=== PATIENT | female | born 1960 | race Caucasian/White ===

== ENCOUNTER → 2019-01-22 07:14 | Outpatient (CLI) | payer OTHER, SELFPAY ==
[2016-01-13 07:00] VITALS: BMI 33.5
[2019-01-22 08:00] LABS: Absolute Lymphocyte Count 3.04 X10^3/ul (0.83-4.51); Basophil# 0.04 X10^3/uL; Basophil% 0.5 % (0-1); Eosinophil# 0.21 X10^3/uL; Eosinophils% 2.6 % (0-5); Hematocrit 41.7 % (37-47); Hemoglobin 13.9 g/dl (12.0-15.0); Lymphocyte # 3.04 X10^3/ul (4.0); Lymphocyte % 38.1 % (19-41); Mean Corp Hgb Conc 33.3 g/gl (32-36); Mean Corpuscular Hgb 29.6 pg (27.0-32.0); Mean Corpuscular Volume 88.9 fL (81-99); Mean Platelet Vol. 9.4 fl (6.2-12.0); Monocyte# 0.66 X10^3/uL; Monocyte% 8.3 % (0-10); Neutrophil % 50.2 % (47-70); Platelet Count 351 K/mm3 (150-450); RBC Distribution Width CV 14.2 % (11.6-14.6); RBC Distribution Width SD 46.1 fl (35.1-43.9); Red Blood Count 4.69 M/mm3 (4.2-5.4)
[2019-01-22 08:03] LABS: Hemoglobin A1c 6.4 % (4.2-6.3)
[2019-01-22 08:04] LABS: POSITIVE COUNT NO; POSITIVE DIFFERENTIAL NO; POSITIVE MORPHOLOGY NO
[2019-01-22 08:19] LABS: ALB/GLOB Ratio 1.3 RATIO (0.9-2.4); AST(SGOT) 15 U/L (15-37); Alanine Aminotransfer ALT/SGPT 30 U/L (13-56); Albumin, Serum 3.9 g/dL (3.2-5.0); Alkaline Phosphatase 70 U/L (45-117); Anion Gap 7 (5-15); BUN 15 mg/dL (7-18); BUN/Creat Ratio 18.7 RATIO (10-20); Calcium,Total 9.1 mg/dL (8.5-10.1); Chloride 106 mmol/L (98-107); Cholesterol 145 mg/dL (200); EST Glomerular Filtration Rate 79 mL/min (>60); Est Glom Filt Rate - Afr Amer 95 mL/min (>60); Glucose 119 mg/dL (74-106); High Density Lipoprotein 50 mg/dL; Protein, Total 6.9 g/dL (6.4-8.2); Sodium Level 137 mmol/L (136-145); T4 Free Direct 1.03 ng/dL (0.76-1.46); Thyroid Stim Hormone (TSH) 4.81 uIU/mL (0.358-3.74); Triglycerides 141 mg/dL; Very Low Density Lipoprotein 28 mg/dL (5-40)
== END ==
PROVIDERS: Family Provider Family Medicine; PCP Family Medicine; Referring Provider Family Medicine; Visit Provider Family Medicine
DX: Z00.00 Encounter for general adult medical examination without abnormal findings (principal); E01.0 Iodine-deficiency related diffuse (endemic) goiter; R73.03 Prediabetes
CPT/HCPCS: 36415; 80053; 80061; 83036; 84439; 84443; 85025

== ENCOUNTER → 2019-01-30 10:34 | Outpatient (CLI) | payer OTHER, SELFPAY ==
[2016-01-13 07:00] VITALS: BMI 33.5
--- NOTE | 2019-01-30 10:37 | BI_ITS ---
MAMMOGRAPHY - BILATERAL SCREENING REASON FOR EXAM: Female, 58 years old. Routine annual screening examination. PERTINENT HISTORY: Non-contributory. TECHNIQUE: Digital bilateral breast marcus (3D mammographic acquisition) in the CC and MLO projections. 2-D mediolateral oblique (MLO) and craniocaudad (CC) views of both breasts were obtained. CAD: Full Field Digital Mammography with Computer Added Detection was performed. COMPARISON: Comparison is made with prior examination dated December 25, 2016 and March 09, 2015. FINDINGS: Breast Composition: The breasts are almost entirely fatty. There are no dominant masses or suspicious calcifications. Stable small bilateral axillary lymph nodes. No other significant abnormalities are identified. There has been no significant change since the prior study. BI/SCREEN MAMM (CAD) W/MARCUS BILAT IMPRESSION: Stable bilateral screening mammogram. Yearly follow-up mammogram recommended. (A) ASSESSMENT CATEGORY: BIRADS Category 2: Benign. A letter regarding these results will be sent to the patient by the facility within 30 days. Approximately 10% of breast cancers are not detected by mammography. A normal mammogram should not delay biopsy of a clinically suspicious abnormality. [id number] Electronically Signed: Donovan Lange, at 12:33 EDT , Service support ,
== END ==
PROVIDERS: Family Provider Family Medicine; PCP Family Medicine; Referring Provider Family Medicine; Visit Provider Family Medicine
DX: Z12.31 Encounter for screening mammogram for malignant neoplasm of breast (principal)
CPT/HCPCS: 77063; 77067

== ENCOUNTER → 2020-11-10 09:39 | Outpatient (CLI) | payer OTHER, SELFPAY ==
[2016-01-13 07:00] VITALS: BMI 33.5
--- NOTE | 2020-11-10 09:43 | RAD_ITS ---
HISTORY: DYSPNEA EXAM: XR Chest 2 Views: COMPARISON: November 18, 2013 FINDINGS: # of images incl. paperwork: 2 Lungs are clear. Heart is not enlarged. No acute osseous pathology perceived. Pulmonary vascularity is distinct. No effusions. RAD/Chest PA and Lateral IMPRESSION: Normal. at 2216 Reported and signed by: Miguel Calhoun MD Electronically Signed: Miguel Calhoun MD at 22:15 EDT Tel , Service support ,
[2020-11-10 12:27] LABS: Erythrocyte Sedimentation Rate 7 mm/hr (0-30)
[2020-11-10 12:29] LABS: Absolute Lymphocyte Count 2.21 X10^3/uL (0.83-4.51); Basophil# 0.05 X10^3/uL; Basophil% 0.6 % (0-1); Eosinophil# 0.16 X10^3/uL; Hematocrit 44.6 % (37-47); Hemoglobin 14.3 g/dL (12.0-15.0); Lymphocyte # 2.21 X10^3/ul (0.83-4.51); Lymphocyte % 27.9 % (19-41); Mean Corp Hgb Conc 32.1 g/dL (32-36); Mean Corpuscular Hgb 29.1 pg (27.0-32.0); Mean Corpuscular Volume 90.8 fL (81-99); Mean Platelet Vol. 9.5 fl (6.2-12.0); Monocyte# 0.47 X10^3/uL; Monocyte% 5.9 % (0-10); NRBC Flagged by Analyzer 0 % (0-5); Neutrophil % 63.2 % (47-70); Platelet Count 410 K/mm3 (150-450); RBC Distribution Width CV 14.6 % (11.6-14.6); RBC Distribution Width SD 48.6 fl (35.1-43.9); Red Blood Count 4.91 M/mm3 (4.2-5.4); White Blood Count 7.9 K/mm3 (4.4-11.0)
[2020-11-10 12:35] LABS: Vitamin B12 1351 pg/mL (211-911)
[2020-11-10 12:52] LABS: ALB/GLOB Ratio 1.3 RATIO (0.9-2.4); AST(SGOT) 14 U/L (15-37); Alanine Aminotransfer ALT/SGPT 46 U/L (13-56); Albumin, Serum 4.2 g/dL (3.2-5.0); Alkaline Phosphatase 83 U/L (45-117); Anion Gap 5 (5-15); BUN 14 mg/dL (7-18); BUN/Creat Ratio 18.2 RATIO (10-20); CRP 4.65 mg/L (0.0-3.0); Calcium,Total 9.4 mg/dL (8.5-10.1); Chloride 105 mmol/L (98-107); Cholesterol 133 mg/dL (200); Creatinine, Serum 0.77 mg/dL (0.55-1.02); EST Glomerular Filtration Rate 82 mL/min (>60); Est Glom Filt Rate - Afr Amer 99 mL/min (>60); Globulin 3.3 g/dL (2.2-4.2); Glucose 123 mg/dL (74-106); High Density Lipoprotein 45 mg/dL; Protein, Total 7.5 g/dL (6.4-8.2); Rheumatoid Factor < 10.0 IU/mL (<15); Sodium Level 137 mmol/L (136-145); Thyroid Stim Hormone (TSH) 2.79 uIU/mL (0.358-3.74); Triglycerides 143 mg/dL; Very Low Density Lipoprotein 29 mg/dL (5-40)
[2020-11-10 13:01] LABS: Hemoglobin A1c 6.6 % (3.8-5.6)
[2020-11-11 18:37] LABS: ANTINUCLEAR ANTIBODIES DIRECT Negative (Negative)
[2020-11-12 09:14] LABS: CCP IgG Antibodies 4 units (0-19)
== END ==
PROVIDERS: PCP Family Medicine; Referring Provider Family Medicine; Visit Provider Family Medicine
DX: R06.00 Dyspnea, unspecified (principal); M25.50 Pain in unspecified joint; G62.9 Polyneuropathy, unspecified; R73.03 Prediabetes; I25.10 Atherosclerotic heart disease of native coronary artery without angina pectoris
CPT/HCPCS: 36415; 71046; 80053; 80061; 82607; 83036; 84443; 85025; 85652; 86038; 86140; 86200; 86225; 86235; 86431

== ENCOUNTER → 2020-11-22 08:11 | Outpatient (CLI) | payer OTHER, SELFPAY ==
[2016-01-13 07:00] VITALS: BMI 33.5
--- NOTE | 2020-11-22 13:16 | PFTCOMP ---
INTRODUCTION: The patient is a 60-year-old female that presents for pulmonary function studies secondary to a diagnosis of dyspnea. Respiratory therapy reports good patient effort. Bronchodilators were used during testing. INTERPRETATION: Forced expiration spirometry demonstrates the presence of a moderate large airways obstructive ventilatory defect. There was no significant response to aerosolized bronchodilators. Spirograms are of good quality but plateau slowly, indicating slow emptying of the lungs. Body plethysmography was performed and reveals lung volumes to be within normal limits. Diffusing capacity by single breath CO is reduced at 58% of predicted. IMPRESSION: Irreversible moderate large airways obstructive ventilatory defect with symmetric reduction in diffusing capacity.
== END ==
PROVIDERS: PCP Family Medicine; Referring Provider Family Medicine; Visit Provider Family Medicine
DX: R06.00 Dyspnea, unspecified (principal)
CPT/HCPCS: 94060; 94726; 94729

== ENCOUNTER → 2021-04-20 06:18 | Outpatient (CLI) | payer OTHER, SELFPAY ==
[2016-01-13 07:00] VITALS: BMI 33.5
--- NOTE | 2021-04-20 17:36 | STRESSREP_ITS ---
Stress Test Report Date: 04-20-2021 Procedure: Exercise tolerance test/imaging study Indications: Shortness of breath/dyspnea on exertion Consent: Per the patient Procedure: The patient exercised on a Stan protocol for 6 minutes completing Stage II achieving a peak heart rate of 111 bpm (68% predicted maximal heart rate) with a peak blood pressure 152/80 mmHg and a peak MET capacity of 7 METs. The baseline ECG demonstrated sinus rhythm; nonspecific T wave abnormality. The peak exercise ECG demonstrated no obvious ECG changes. There were no cardiac dysrhythmias pretest, during exercise, or recovery. The functional capacity was considered average. There was no complaint of chest discomfort during exercise or recovery. The examination was discontinued secondary to dyspnea. Impression: 1. Technically adequate (percent predicted maximal heart rate greater than 85%) exercise tolerance test 2. Peak exercise ECG with no obvious ECG changes 3. There were no cardiac dysrhythmias pretest, during exercise, or recovery 4. Nuclear images pending Myocardial perfusion imaging study: Technique: The patient was injected with 11.3 mCi of technetium 99m Cardiolite and subsequently rest SPECT Cardiolite nuclear imaging was obtained in the horizontal long, vertical long, and short axis views. The patient exercised on a Stan protocol for 6 minutes completing Stage II achieving a peak heart rate of 111 bpm (68% predicted maximal heart rate) with a peak blood pressure 152/80 mmHg and a peak MET capacity of 7 METs. The patient was injected with 34.2 mCi of technetium 99m Cardiolite and subsequently stress SPECT Cardiolite nuclear imaging was obtained in the horizontal long, vertical long, and short axis views. A gated Cardiolite study at peak stress was obtained. Interpretation: Rest and stress SPECT Cardiolite nuclear imaging status post realignment, normalization, and attenuation correction, demonstrates the appearance of relat peter uniform tracer uptake and myocardial perfusion appearing within normal limits. There is end systolic thickening and brightening. The gated Cardiolite study demonstrates myocardial thickening and inward wall motion. The reported LVEF is 73%. Impression: 1. Rest and stress SPECT Cardiolite nuclear imaging demonstrate relative uniform tracer uptake and myocardial perfusion appearing within normal limits. 2. The gated Cardiolite study reports an LVEF of 73%. This note was generated with Up[employer] software. It may contain incorrect words, spelling, and punctuation that were not noted in checking the note before signing.
== END ==
PROVIDERS: PCP Internal Medicine; Referring Provider Internal Medicine; Visit Provider Internal Medicine
DX: R06.02 Shortness of breath (principal)
CPT/HCPCS: 78452; 93017; A9500; A4216

== ENCOUNTER → 2021-04-26 07:02 | Outpatient (CLI) | payer OTHER, SELFPAY ==
[2016-01-13 07:00] VITALS: BMI 33.5
--- NOTE | 2021-04-26 07:05 | BI_ITS ---
MAMMOGRAPHY - BILATERAL SCREENING 3-D TOMOSYNTHESIS REASON FOR EXAM: Female, 60 years old. SCREENING PERTINENT HISTORY: No significant family history. TECHNIQUE: 2-D mammograms and 3-D Tomosynthesis of the breast (s) were performed. CAD was performed. COMPARISON: 01/30/2019 FINDINGS: The breast composition is composed of scattered fibroglandular density. Scattered benign calcifications are seen. No dense spiculated masses or suspicious microcalcifications are identified. No architectural distortion is identified. There is no skin thickening or retraction. There has been no significant change since the prior study. BI/SCRN MAMM (CAD)W/MARCUS BILAT IMPRESSION: No mammographic signs of malignancy. Routine yearly mammograms recommended. ASSESSMENT CATEGORY: BIRADS Category 1: Negative. A letter regarding these results will be sent to the patient by the facility within 30 days. FOLLOW UP RECOMMENDATION: Yearly follow up mammogram recommended. (A) Approximately 10% of breast cancers are not detected by mammography. A normal mammogram should not delay biopsy of a clinically suspicious abnormality. Electronically Signed: Maciej Restrepo MD at 8:15 EDT Tel , Service support ,
== END ==
PROVIDERS: PCP Internal Medicine; Referring Provider Internal Medicine; Visit Provider Internal Medicine
DX: Z12.31 Encounter for screening mammogram for malignant neoplasm of breast (principal)
CPT/HCPCS: 77063; 77067

== ENCOUNTER → 2021-04-28 06:58 | Outpatient (CLI) | payer OTHER, SELFPAY ==
[2016-01-13 07:00] VITALS: BMI 33.5
--- NOTE | 2021-04-28 07:03 | CT_ITS ---
INDICATION: SMOKER EXAMINATION: CT CHEST WITHOUT CONTRAST - CT Chest W/O Contrast Injection TECHNIQUE: Helically acquired images were obtained of the chest. A radiation dose optimization technique was used for this scan. IV Contrast dosage and agent: None. COMPARISON: 11/10/2020. FINDINGS: LUNGS, PLEURA AND LARGE AIRWAYS: Mild bronchial wall thickening with subtle prominence of the interstitial lung markings, no evidence of focal lung infiltrate or consolidation, no evidence of parenchymal lung nodules or masses. No evidence of pneumothorax or pleural effusion. THYROID: No thyroid lesions. HEART AND PERICARDIUM: Heart size is normal. No pericardial effusion. Atherosclerotic calcifications of the coronary vessels are seen. VESSELS: Thoracic aorta is not dilated. Scattered atherosclerotic calcifications visualized in the aortic arch. MEDIASTINUM AND GAMA: A well-circumscribed 1.7 cm low-attenuation lesion is visualized in the anterior right pericardium, could represent a pericardial cyst. Scattered subcentimeter mediastinal lymph nodes are seen. No mediastinal or hilar adenopathy. Esophagus is unremarkable. No hiatal hernia. UPPER ABDOMEN: No acute pathology. A 0.3 cm nonobstructive stone is visualized in the neck of the gallbladder. BONES: Degenerative bone changes, no suspicious lytic or blastic abnormality. Prominent bilateral axillary lymph nodes visualized largest on the right axilla seen on axial series 2 image 17 measuring 2.[address]/Chest without Contrast IMPRESSION: No evidence of parenchymal lung masses or nodules. 1.7 cm low-attenuation lesion visualized in the anterior right pericardium could represent either a pericardial cyst or lymph node. Bilateral axillary lymphadenopathy seen. Electronically Signed: Mykel Aguilera MD at 8:20 EDT Tel , Service support ,
== END ==
PROVIDERS: PCP Internal Medicine; Referring Provider Internal Medicine; Visit Provider Internal Medicine
DX: F17.200 Nicotine dependence, unspecified, uncomplicated (principal)
CPT/HCPCS: 71250

== ENCOUNTER → 2021-06-24 07:02 | Outpatient (CLI) | payer SELFPAY ==
[2016-01-13 07:00] VITALS: BMI 33.5
[2021-06-24 07:34] LABS: Platelet Count 393 K/mm3 (150-450)
[2021-06-24 07:54] LABS: Hemoglobin A1c 5.7 % (3.8-5.6)
[2021-06-24 08:22] LABS: AST(SGOT) 11 U/L (15-37); Alanine Aminotransfer ALT/SGPT 25 U/L (13-56); Alkaline Phosphatase 68 U/L (45-117); Bilirubin, Direct 0.12 mg/dL (0.00-0.30); Cholesterol 113 mg/dL (200); Globulin 3.2 g/dL (2.2-4.2); High Density Lipoprotein 44 mg/dL; Protein, Total 7.2 g/dL (6.4-8.2); Triglycerides 91 mg/dL; Very Low Density Lipoprotein 18 mg/dL (5-40)
== END ==
PROVIDERS: PCP Internal Medicine; Referring Provider Internal Medicine; Visit Provider Internal Medicine
DX: D69.6 Thrombocytopenia, unspecified (principal); E11.9 Type 2 diabetes mellitus without complications; E78.5 Hyperlipidemia, unspecified
CPT/HCPCS: 36415; 80061; 80076; 83036; 85049

== ENCOUNTER 2021-09-13 16:16 | Outpatient (CLI) | payer OTHER, SELFPAY ==
[2016-01-13 07:00] VITALS: BMI 33.5
--- NOTE | 2021-09-13 16:28 | RAD_ITS ---
STUDY: X-RAY - PELVIS AND LEFT HIP REASON FOR EXAM: Female, 61 years old. LEFT HIP PAIN S/P FALL TODAY UNABLE TO BEAR WEIGHT TECHNIQUE: 3 views of the pelvis and hip. COMPARISON: Pelvic x-ray dated February 09, 2017 FINDINGS: There is a non-specific bowel gas pattern. Normal visualized soft tissue structures. No visualized acute fractures of the hips or pelvis. Lower lumbar spine hardware and chronic postoperative changes noted. Bilateral adnexal clips are also present. Normal bilateral iliac wings, sacroiliac joints and visualized sacrum. Normal bilateral superior and inferior pubic rami. Normal pubic symphysis. Normal bilateral ischial tuberosities. Normal visualized femoral head. Normal acetabulum. Normal hip joint. RAD/HIP, UNI W/ Pelvis 2-3 Views IMPRESSION: No acute process Electronically Signed: Ricky Trevizo MD at 17:45 EST ,
== END 2021-09-13 23:59 | disposition home or self-care (01) ==
PROVIDERS: PCP Internal Medicine; Referring Provider Internal Medicine; Visit Provider Internal Medicine
DX: M25.552 Pain in left hip (principal)
CPT/HCPCS: 73502

== ENCOUNTER 2021-09-14 13:25 | Emergency (ER) | payer OTHER, SELFPAY ==
[2016-01-13 07:00] VITALS: BMI 33.5
[2021-09-14 13:26] VITALS: BP 100/51; PULSE 66; RESP 15; TEMP 35.8; O2SAT 98; BMI 32.5
--- NOTE | 2021-09-14 13:45 | MRI_ITS ---
EXAM: MR LEFT LOWER EXTREMITY WITHOUT INTRAVENOUS CONTRAST, HIP CLINICAL INDICATION: trauma left hip/pelvis TECHNIQUE: Multiplanar and multisequence MR images of the left hip without intravenous contrast. This report was created using [employer] report generation technology. COMPARISON: xr Sep 13 2021 4:38pm FINDINGS: TENDONS: FLEXORS: Unremarkable. Intact. EXTENSORS/HAMSTRING: Unremarkable. Intact. ABDUCTORS: Unremarkable. Intact. ADDUCTORS: Unremarkable. Intact. ROTATORS: Unremarkable. Intact. MUSCLES: Unremarkable. Normal bulk and signal. FLUID: Unremarkable. No joint effusion. No trochanteric bursitis. LABRUM: Unremarkable. No evidence of a tear on this non-arthrogram exam. CARTILAGE: Unremarkable. Articular cartilage intact. BONES/JOINTS: Spinal fusion david causes artifact over the SI joints. No femoral neck fracture. No avascular necrosis of the femoral head. No sacral insufficiency fracture. No suspicious bone marrow signal alteration. OTHER SOFT TISSUES: Unremarkable. REPRODUCTIVE: Right Bartholin Cyst noted. MRI/Lower Ext Joint Only (Routine) IMPRESSION: Right Bartholin Cyst noted. Electronically Signed: Benson Rae MD at 15:53 EST Reading Location ID and State: [facility] / [place] , Service support ,
[2021-09-14] MEDS: Ondansetron 4 MG/2 ML Vial IV (14:02)
[2021-09-14] MEDS: Morphine 4 MG/ML Syringe IV (14:02)
--- NOTE | 2021-09-14 16:33 | EDS_ITS ---
HPI History of Present Illness Chief Complaint: Lower Extremity Injury Onset/Context/Timing Onset: Yesterday Location: L hip Current Severity: Severe Associated Symptoms Associated Symptoms: None Narrative Narrative: Patient fell yesterday and landed on her left hip. She is having a lot of pain despite taking narcotic medications and muscle relaxers. Her PCP evaluated her today and was concerned for hip fracture. She was discussed with Dr. Stark from orthopedics and the patient was referred to the ED for an MRI. Prior similar symptoms: No Recent Illness/Hospitalization: No PFSH PFSH Medical History Anxiety COPD (chronic obstructive pulmonary disease) Diabetes HTN (hypertension) Osteoarthritis Sleep apnea Home Medications lorazepam 0.5 mg PO DAILY PRN PRN 11/17/13 [History Last Taken Unknown] ecngxxok-xgs-UJ-lycopen-lutein [Centrum Silver Tablet] 1 ea PO DAILY 11/17/13 [History Last Taken Unknown] vvlvd-9o-qcq-epa-fish oil-D3 1 ea PO DAILY 11/17/13 [History Last Taken Unknown] amlodipine 5 mg tablet tablet PO 05/11/21 [History Last Taken Unknown] atorvastatin 40 mg tablet tablet PO 05/11/21 [History Last Taken Unknown] citalopram 20 mg tablet 40 mg PO DAILY tab 05/11/21 [History Last Taken Unknown] metformin 500 mg tablet tablet PO 05/11/21 [History Last Taken Unknown] metoprolol succinate 100 mg tablet,extended release 24 hr 100 mg PO DAILY tab 05/11/21 [History Last Taken Unknown] Allergy/AdvReac Type Severity Reaction Status Date / Time ciprofloxacin HCl Allergy Severe skin Verified 05/11/21 08:20 [From Cipro] cracking and peeling Family History (Updated 05/11/21 @ 08:19 by Eun Chase) Sister Diabetes Father Alzheimer disease Mother Emphysema lung Surgical History History of cardiac catheterization History of colonoscopy (~2017) History of spinal fusion History of tonsillectomy History of total abdominal hysterectomy History of tubal ligation Hx of LASIK Social History Smoking Status: Light Smoker (<10/day) ROS ROS ED Constitutional Constitutional ED: Denies fever(s) Eyes Eyes: Denies change in vision ENT ENT ED: Denies ear pain Cardiovascular Cardiovascular: Denies chest pain Respiratory/Chest Respiratory/Chest: Denies dyspnea Gastrointestinal Gastrointestinal: Denies abdominal pain Genitourinary Genitourinary ED: Denies dysuria Musculoskeletal Musculoskeletal: Reports arthralgias and myalgias Integumentary Denies rash Neurologic Neurologic: Denies headache(s) Psychiatric Psychiatric: Denies depression Endocrine Endocrinology: Denies polyuria Allergic/Immunologic Allergic/Immunologic ED: Denies urticaria EXAM Physical Exam Const Vital Signs: 09/14/21 13:26 Temperature 96.4 F L Temperature Source Temporal Pulse Rate 66 Respiratory Rate 15 Blood Pressure 100/51 L Blood Pressure Mean 67 Pulse Ox 98 Oxygen Delivery Method Room Air Positive well nourished and well developed General Appearance ED: well developed HEENT Negative for trauma Eyes EOMs intact bilaterally Neck supple Resp normal respiratory effort Cardio regular rate Extremity Extremity Narrative: Patient has no leg shortening or abnormal rotation. She has tenderness to palpation over the greater trochanter. No abnormal movement. Neuro oriented x3 Sensorium / Orientation: alert Motor Exam: strength 5/5 throughout Psych mental status grossly normal Skin no rashes or lesions noted MDM MDM MDM Narrative Medical decision making narrative: I have low clinical suspicion for fracture, but the patient is having severe pain. MRI was done at the recommendations of orthopedics. This showed no evidence of fracture or dislocation. Patient will continue using her walker. Pain medication. Follow-up with orthopedics. Return for any new or worsening issues. Impression #1 left hip pain Radiography Diagnostic Testing: Clinical Impression(s) from Imaging Studies Lower Extremity MRI 09/14/21 13:45 IMPRESSION: Right Bartholin Cyst noted. Electronically Signed: Benson Rae MD at 15:53 EST Reading Location ID and State: [facility] / [place] , Service support , Discharge Plan Triage Chief Complaint: Lower Extremity Injury ED Provider: Leonidas Baltazar Dx/Rx/DC Orders Prescriptions: No Action metformin 500 mg tablet PO RF: 0 atorvastatin 40 mg tablet PO RF: 0 metoprolol succinate 100 mg tablet extended release 24 hr 100 mg PO DAILY RF: 0 amlodipine 5 mg tablet PO RF: 0 citalopram 20 mg tablet 40 mg PO DAILY RF: 0 lorazepam 0.5 MG tablet 0.5 mg PO DAILY PRN PRN (Reason: Anxiety) RF: 0 pbhueiba-ghz-YJ-lycopen-lutein [Centrum Silver] 1 EACH tablet 1 ea PO DAILY RF: 0 ycjal-6e-apd-epa-fish oil-D3 1 EACH capsule 1 ea PO DAILY RF: 0 Primary Care Provider: Stephie Walsh
== END 2021-09-14 17:01 | disposition home or self-care (01) ==
LOC: ED 13:52
PROVIDERS: Emergency Provider Emergency Medicine; PCP Internal Medicine; Visit Provider Emergency Medicine
DX: M25.552 Pain in left hip (principal); F17.200 Nicotine dependence, unspecified, uncomplicated; G47.30 Sleep apnea, unspecified
CPT/HCPCS: 73721; 96374; 96375; 99283; A4216; J2405

== ENCOUNTER 2021-10-28 07:00 | Outpatient (RCR) | payer OTHER, SELFPAY ==
[2016-01-13 07:00] VITALS: BMI 33.5
--- NOTE | 2021-10-03 08:49 | HP.PTEVAL ---
Patient's Visit Information FELIPE ARAUZ is a 61 year old F referred to Physical Therapy by Dr. Stephie Walsh MD with a diagnosis of Left Hip and Lumbar Pain. Date of Evaluation: 10/03/21 Physical Therapist: Carol Pulliam DPT - Visit Plan Frequency: 2x /Week Duration: 4 Weeks Plan: Focus on LE and Core strength/stabilization- E-stim as modality- no US - Subjective Patient reports 3 weeks ago she fell down the stairs- she crawled back up the stairs- got herself righted- then went to the PCP who took an x-ray of the left hip. Went to ER to get MRI approved- no fractures note. She hit her left hip/knee/ankle and ribs. She went head first. She is having pain in the right side in the rib area- feels its compensatory for her left hip. The pain is there all the time. Agg: twisting, bending, uneven surfaces. Worst: 3/10 Best: 10 Eases: muscle relaxers, medication. She can sit longer than she can stand- laying down normally feels pretty good but she is a restless sleeper so rolling over wakes her up and is painful. The pain is located in the joint. Describes it as dull and achy all the time but sharp when it grabs her. No radiating pain down the leg but does reports pain across the lumbar spine to the right side. Does have some pain that radiates across the front of the pelvis. 25 years she had a lumbar fusion- so she does have some left foot numbness/tingling. No residual buckling or weakness. She does not fall regularly. She is back to normal activities just with pain- still not lifting the laundry baskets- lots of steps. 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 She can get up and move around as needed. PMHx/Meds: see ED note- up to date. - Objective Posture: FH, RS- can correct but does not main. Gait: no deviation noted- good arm swing and trunk rotation- good guillaume. Balance: 15 seconds bilateral- no hip drop noted. HR/TR: able without UE support- reports discomfort with TR on the left. Stairs: asc/desc 8 recip with 1 HR- report discomfort with eccentric. ROM: Lumbar: flexion: hands to toes. Extension: discomfort noted but WFL, SB to the right with discomfort, Rotation: slight pain bilateral, Hip: WFL discomfort with IR. Strength: Core: fair, Hip: 4/5 throughout, Knee: 5/5, Ankle: 5/5. Flex: HS: no restriction, Gastroc: mild restriction. Special Test: LLD: negative, Pelvic Alignment: WFL - Special Tests L/S Slump test left side: Positive L/S Slump test right side: Positive L/S Left Straight Leg Raise: Negative L/S Right Straight Leg Raise: Negative L Hip Scour: Negative L Hip TREY - Intraarticular Pathology: Positive L Hip FADDIR - Labrum: Positive - Balance/Special Test Scores Lower Extremity Functional Score: 34 - Goals Goal 1:: Patient will be I with HEP and progression Goal Time Frame: 4-6 Weeks Goal 2:: Patient will maintain proper posture t/o tx session to demo increased core s/s Goal Time Frame: 4-6 Weeks Goal 3:: Patient will subjectively report 80% better Goal Time Frame: 4-6 Weeks Goal 4:: Patient will demo full AROM of the lumbar spine with no reports of pain Goal Time Frame: 4-6 Weeks - Rehabilitation Potential Physical Therapy Diagnosis: Patient presents with hypomobility s/p fall- she has decreased pain free ROM, LE and core strength/stabilization and muscular endurance leading to poor posture and increased pain with ADL's. Rehabilitation Potential: Good - Anticipated Interventions Patient/Client Instruction: Educate patient on: Benefits of Fitness Program Therapeutic Exercise to Include: Strength training, Endurance training, Balance training, Coordination, Body mechanics, Postural training, Flexibilty training, Gait and locomotor training, Neuromotor development, Dynamic Lumbar Stabilization, Scapular Strength/Stabilization For the Purpose of:: To improve muscle performance and motor function TENS: Yes Cryotherapy (ice pack, ice massage): Yes Thermo therapy (hot pack): Yes Ultrasound (thermal/non thermal): No Thank you for the opportunity to evaluate your patient. For Medicare and Medicare HMO plans, please review the plan of care and approve it. It will need to be FAXED BACK to us at [phone] for Medicare purposes. For Medicare only, by signing this I certify the plan of care. Please let me know if there are questions or concerns regarding this plan of care. Physician Signature: Date:
--- NOTE | 2021-10-28 07:24 | HP.PTDCSUM_ITS ---
It has been my pleasure to treat FELIPE ARAUZ referred by Dr. Stephie Walsh MD, with the diagnosis of Left Hip and Lumbar Pain for a total of 9 visit(s). Discharge Date: Please see the following information for a summary of their discharge status. Subjective: PATIENT REPORTS THE SYMPTOMS SHE CAME HERE FOR ARE GONE. PLANS TO CONTINUE WITH HER HEP. Left Hip Pain Intensity (Out of 10): 0 % Improvement: 100 Objective/Function: PATIENT WAS SEEN TODAY FOR RE-ASSESSMENT OF PROGRESS TOWARD THE SET PT GOALS AND THE NEED FOR FURTHER PHYSICAL THERAPY VS READINESS FOR DISCHARGE. UPON EXAM TODAY: PATIENT IS PAINFREE WITH LUMBAR ROM TESTING ALL PLANES TODAY, IS INDEP WITH A HEP AND ALL GOALS HAVE BEEN MET. SHE IS APPROPRIATE FOR AND AGREEABLE TO DISCHARGE TODAY. Goal 1:: Patient will be I with HEP and progression Goal Progress: Goal Met Goal 2:: Patient will maintain proper posture t/o tx session to demo increased core s/s Goal Progress: Goal Met Goal 3:: Patient will subjectively report 80% better Goal Progress: Goal Met Goal 4:: Patient will demo full AROM of the lumbar spine with no reports of pain Goal Progress: Goal Met Plan: D/C TO HEP. PATIENT AGREEABLE. If there are questions or concerns regarding this patient's physical therapy, joseph saher feel free to call me at [phone]. Thank you for the referral of this patient. Sincerely, Sudha Menjivar, PT, Cert MDT Balance/Gait/Functional tests - Balance/Special Test Scores Lower Extremity Functional Score: 75
== END 2021-10-28 15:18 | disposition home or self-care (01) ==
LOC: PT 07:00
PROVIDERS: PCP Internal Medicine; Referring Provider Internal Medicine; Visit Provider Internal Medicine
DX: M54.9 Dorsalgia, unspecified; M25.559 Pain in unspecified hip
CPT/HCPCS: 97014; 97035; 97110; 97162; 97164; G0283

== ENCOUNTER → 2022-05-24 | Outpatient (CLI) | payer OTHER, SELFPAY ==
[2016-01-13 07:00] VITALS: BMI 33.5
--- NOTE | 2022-05-24 15:36 | NEURO ---
NCS and/or EMG Patient Report Ordering Doctor: Stephie Walsh DATE OF SERVICE: 05/24/22 Ashley presents for electrodiagnostic testing of the right upper limb. She reports numbness and tingling in the right fifth digit. Electrodiagnostic findings: Right median motor nerve demonstrates normal distal latency, amplitude and conduction velocity. Ulnar motor response demonstrates normal distal latency and amplitude with a greater than 15% drop in conduction across the elbow. Normal median and ulnar F waves. Sensory responses are within normal limits. On needle EMG, all muscles tested in the right upper limb, as well as a cervical paraspinals, showed no evidence of denervation with normal motor unit action potentials. Electrodiagnostic impression: This is an abnormal study in the right upper limb. 1. Electrodiagnostic findings suggestive of right-sided ulnar neuropathy, consistent with a mild right cubital tunnel syndrome. 2. No electrodiagnostic evidence is noted for median neuropathy, i.e. carpal tunnel syndrome 3. No electrodiagnostic evidence is noted for cervical radiculopathy.
== END | disposition home or self-care (01) ==
LOC: PSN 08:21
PROVIDERS: PCP Internal Medicine; Referring Provider Internal Medicine; Visit Provider Internal Medicine
DX: R20.2 Paresthesia of skin (principal)
CPT/HCPCS: 95886; 95910

== ENCOUNTER → 2023-02-23 | Outpatient (CLI) | payer OTHER, SELFPAY ==
[2016-01-13 07:00] VITALS: BMI 33.5
== END | disposition home or self-care (01) ==
PROVIDERS: PCP Internal Medicine; Referring Provider Internal Medicine; Visit Provider Internal Medicine
DX: G47.33 Obstructive sleep apnea (adult) (pediatric) (principal)
CPT/HCPCS: 95810

== ENCOUNTER → 2023-05-31 | Outpatient (CLI) | payer OTHER, SELFPAY ==
[2016-01-13 07:00] VITALS: BMI 33.5
--- NOTE | 2023-05-31 14:23 | BI_ITS ---
MAMMOGRAPHY - BILATERAL SCREENING REASON FOR EXAM: Female, 62 years old. Routine annual screening examination. PERTINENT HISTORY: Non-contributory. TECHNIQUE: Digital bilateral breast marcus (3D mammographic acquisition) in the CC and MLO projections. 2-D mediolateral oblique (MLO) and craniocaudad (CC) views of both breasts were obtained. CAD: Full Field Digital Mammography with Computer Added Detection was performed. COMPARISON: Comparison is made with prior study dated April 26, 2021 January 30, 2018. FINDINGS: Breast Composition: The breasts are almost entirely fatty. There are no dominant masses or suspicious calcifications. No other significant abnormalities are identified. There has been no significant change since the prior study. BI/SCRN MAMM (CAD)W/MARCUS BILAT IMPRESSION: Stable bilateral screening mammogram. Yearly follow-up mammogram recommended. (A) ASSESSMENT CATEGORY: BIRADS Category 1: Negative. A letter regarding these results will be sent to the patient by the facility within 30 days. Approximately 10% of breast cancers are not detected by mammography. A normal mammogram should not delay biopsy of a clinically suspicious abnormality. [id number] Electronically Signed: Donovan Lange MD at 15:45 EST ,
--- NOTE | 2023-05-31 14:27 | BD_ITS ---
STUDY: DUAL ENERGY X-RAY ABSORPTIOMETRY / DXA REASON FOR EXAM: Female, 62 years old. [id number] TECHNIQUE: Bone Mineral Density (BMD) measurements of lumbar spine and bilateral hips were obtained. COMPARISON: None. FINDINGS: Lumbar Spine (L1-L4): g/cm2 (1.192) / T-score (1.6) / Z-score (3.1) Findings are suggestive of normal bone density with a low fracture risk. Left Femur Total: g/cm2 (0.800) / T-score (-1.2) / Z-score (-0.2) Left Femoral Neck: g/cm2 (0.654) / T-score (-1.8) / Z-score (-0.4) Right Femur Total: g/cm2 (0.792) / T-score (-1.2) / Z-score (-0.2) Right Femoral Neck: g/cm2 (0.645) / T-score (-1.8) / Z-score (-0.5) BD/Dexa Bone Density Study IMPRESSION: The patient is considered osteopenic as outlined below according to World Jaden Organization (WHO) criteria with a moderate fracture risk. Reference Information: The T-score is the number of standard deviations above or below the standard which is normal for young adults at their peak bone mineral density. The World Health Organization (WHO) interprets the T-scores as follows: Above -1 Normal bone density Between -1 and -2.5 Osteopenia Equal to / or below -2.5 Osteoporosis As a practical clinical guideline, osteopenia may be graded as follows: Mild -1 through -1.5 Moderate -1.6 through -2.0 Severe -2.1 through -2.4 The Z-score is the number of standard deviations above or below age-matched controls. A Z-score of less than -1.5 would be considered abnormal. References: 1. NIH Osteoporosis and Related Bone Diseases www osteo.org 2. International Society for Clinical Densitometry www iscd.org 3. National Osteoporosis Foundation www nof.org Electronically Signed: Donovan Lange MD at 14:24 EST ,
== END | disposition home or self-care (01) ==
LOC: OPBD 14:22
PROVIDERS: PCP Internal Medicine; Referring Provider Internal Medicine; Visit Provider Internal Medicine
DX: Z78.0 Asymptomatic menopausal state (principal); Z12.31 Encounter for screening mammogram for malignant neoplasm of breast
CPT/HCPCS: 77063; 77067; 77080

== ENCOUNTER → 2023-09-05 | Outpatient (CLI) | payer OTHER, SELFPAY ==
[2016-01-13 07:00] VITALS: BMI 33.5
--- NOTE | 2023-09-05 12:45 | CT_ITS ---
STUDY: LOW DOSE CT LUNG CANCER SCREENING REASON FOR EXAM: Female, 63 years old. Current smoker. Patient smokes half a pack per day for 47 years. COPD. RADIATION DOSAGE (If Supplied By Facility): CTDIvol = ( 3.02 ) mGy, DLP = ( 108.72 ) mGycm TECHNIQUE: No contrast was administered. Low dose technique was utilized (average mAS-38 and kVp 120). 1.25 mm axial source images with a slice interval of 1.25-mm were reconstructed in lung windows. 2.5 mm axial source images with a slice interval of 2.5-mm were reconstructed in lung windows. 5.0 mm axial source images with a slice interval of 5.0-mm were reconstructed in soft tissue windows. COMPARISON: Comparison is made with prior study April 28, 2021. NODULES: No suspicious nodules are seen. Emphysema: Mild degree of emphysematous changes. Endobronchial lesion: None Aorta: Atherosclerotic plaque formation of the aortic arch. CORONARY ARTERIES: Coronary artery calcification is seen. Heart: Unremarkable Pulmonary artery: Unremarkable Mediastinal nodes: Small mediastinal lymph nodes. Other chest and abdominal findings: CT/Low Dose CT Lung Screening IMPRESSION: Lung-RADS category 2 - Continue annual screening with LDCT in 12 months. IMPORTANT NOTES FOR USE: ACR Lung-RADS Version 1.1 Assessment Categories Release Date: 2018 Category: Coded 0-4 bases on nodule(s) with highest degree of suspicion. Negative screen is defined as categories 1 and 2; a positive screen is defined as categories 3 and 4. Category 3 and 4A nodules that are unchanged on interval CT should be coded as category 2, and individuals returned to screening in 12 months. Category 4X: Category 3 or 4 nodules with additional imaging findings that increase the suspicion of lung cancer, such as spiculation, GGN that doubles in size in 1 year, enlarged lymph notes, etc. Category Modifiers: S (significant finding unrelated to lung cancer) Electronically Signed: Donovan Lange MD at 13:56 EST ,
== END | disposition home or self-care (01) ==
LOC: CT 12:45
PROVIDERS: PCP Internal Medicine; Referring Provider Internal Medicine; Visit Provider Internal Medicine
DX: Z12.2 Encounter for screening for malignant neoplasm of respiratory organs (principal); F17.200 Nicotine dependence, unspecified, uncomplicated
CPT/HCPCS: 71271

== ENCOUNTER → 2024-12-17 | Outpatient (CLI) | payer OTHER, SELFPAY ==
[2016-01-13 07:00] VITALS: BMI 33.5
--- NOTE | 2024-12-17 08:11 | BI_ITS ---
EXAM: SCRN MAMM (CAD)W/MARCUS BILAT 12/17/2024 CLINICAL HISTORY: F, Age 64 y/o , SCREENING TECHNIQUE: Bilateral screening digital breast tomosynthesis with 2D and 3D images. Computer aided detection. COMPARISON: Prior exam(s) dated 05/31/2023, 04/26/2021. FINDINGS: TISSUE DENSITY: The breast tissue is almost entirely fatty. Bilateral Breast Mammographic Findings: No significant masses, calcifications or other abnormalities are identified. BI/SCRN MAMM (CAD)W/MARCUS BILAT IMPRESSION: Right Breast: BIRADS 1 NEGATIVE. Left Breast: BIRADS 1 NEGATIVE. OVERALL FINAL ASSESSMENT: BIRADS 1 NEGATIVE. RECOMMENDATION: Routine annual follow-up in 1 Year A letter with findings and recommendations will be mailed to the patient. Reading Location: [id number]
== END | disposition home or self-care (01) ==
LOC: OPBI 08:09
PROVIDERS: PCP Internal Medicine; Referring Provider Internal Medicine; Visit Provider Internal Medicine
DX: Z12.31 Encounter for screening mammogram for malignant neoplasm of breast (principal)
CPT/HCPCS: 77063; 77067

== ENCOUNTER → 2025-01-19 | Outpatient (CLI) | payer OTHER, SELFPAY ==
[2016-01-13 07:00] VITALS: BMI 33.5
--- NOTE | 2025-01-19 16:15 | CT_ITS ---
PROCEDURE: LOW DOSE CT LUNG SCREENING 01/19/2025 REASON FOR EXAM: CURRENT SMOKER TECHNIQUE: LOW DOSE CT LUNG SCREENING Coronal and Sagittal reconstruction series were provided. One or more dose reduction techniques were used (e.g., Automated exposure control, adjustment of the mA and/or kV according to patient size, use of iterative reconstruction technique). REFERENCE LINK: [employer] Lung-RADS RADIATION DOSE SUMMARY: CTDlvol: 2 mGy DLP: 53 mGycm COMPARISON: 09/05/2023 FINDINGS: Central airways are patent. Moderate emphysema. Well inflated lungs. No consolidation, effusion, or pneumothorax. On the left, small intrapulmonary lymph node. On the right, no suspicious lung nodules. Unremarkable base of neck and axilla. Normal heart size. Normal esophagus. No acute vascular pathology. Thoracic spine degeneration. No acute chest wall findings. CT/Low Dose CT Lung Screening IMPRESSION: No suspicious lung nodules. Lung-RADS Category: 1 Other Significant Findings: Reading Location: [id number]
== END | disposition home or self-care (01) ==
PROVIDERS: PCP Internal Medicine; Referring Provider Internal Medicine; Visit Provider Internal Medicine
DX: Z12.2 Encounter for screening for malignant neoplasm of respiratory organs (principal); F17.200 Nicotine dependence, unspecified, uncomplicated
CPT/HCPCS: 71271

== ENCOUNTER → 2025-05-22 | Outpatient (CLI) | payer OTHER, SELFPAY ==
[2016-01-13 07:00] VITALS: BMI 33.5
[2025-05-22 12:24] LABS: Hematocrit 41.9 % (37-47); Hemoglobin 14.2 g/dL (12.0-15.0); Immature Granulocytes Count 0.010 X10^3/uL (0.0-0.0); Mean Corp Hgb Conc 33.9 g/dL (32-36); Mean Corpuscular Volume 91.3 fL (81-99); Mean Platelet Vol. 9.3 fl (6.2-12.0); NRBC Flagged by Analyzer 0 % (0-5); Platelet Count 369 K/mm3 (150-450); RBC Distribution Width CV 13.9 % (11.6-14.6); RBC Distribution Width SD 46.9 fl (35.1-43.9); Red Blood Count 4.59 M/mm3 (4.2-5.4); White Blood Count 6.2 K/mm3 (4.4-11.0)
[2025-05-22 12:37] LABS: Color, Urine Yellow (Yellow); Glucose, Dipstick Normal (Normal); Ketone-Dipstick 15 mg/dl (Negative); Leukocyte Esterase-Dipstick 25 /ul (Negative); Nitrite-Dipstick Negative (Negative); Occult Blood-Urine 25 /ul (Negative); Protein-Dipstick 30 mg/dl (Negative); Specific Gravity, Urine 1.025 (1.002-1.030); Urine Bilirubin Dipstick Negative (Negative)
[2025-05-22 13:02] LABS: AST(SGOT) 17 U/L (<=31); Alanine Aminotransfer ALT/SGPT 19 U/L (<=34); Albumin, Serum 4.8 g/dL (3.4-4.8); Alkaline Phosphatase 68 U/L (35-104); Anion Gap 12 (5-15); BUN 18 mg/dL (4-19); BUN/Creat Ratio 22.4 RATIO (10-20); Calcium,Total 10.2 mg/dL (7.6-11.0); Carbon Dioxide 24.0 mmol/L (21.0-32.0); Chloride 106 mmol/L (98-108); Globulin 2.1 g/dL (2.2-4.2); Glucose 92 mg/dL (70-99); Potassium 3.9 mmol/L (3.3-5.1)
[2025-05-22 17:54] LABS: Creatinine, Urine (random) 289.00 mg/dL (28.00-217.00); Microalbumin,Random Urine 19.2 mg/L (<20 mg/L)
== END | disposition home or self-care (01) ==
PROVIDERS: PCP Internal Medicine; Referring Provider Internal Medicine; Visit Provider Internal Medicine
DX: I10 Essential (primary) hypertension (principal)
CPT/HCPCS: 80053; 81002; 82043; 82570; 85025

== ENCOUNTER → 2025-06-11 | Outpatient (CLI) | payer OTHER, SELFPAY ==
[2016-01-13 07:00] VITALS: BMI 33.5
--- NOTE | 2025-06-11 08:30 | BD_ITS ---
PROCEDURE: DEXA BONE DENSITY STUDY 06/11/2025 REASON FOR EXAM: F, age 64 y/o . Postmenopausal. TECHNIQUE: Procedure Code: BDDBD Modality: DX Procedure: DEXA BONE DENSITY STUDY COMPARISON: May 31, 2023. FINDINGS: BMD and T-SCORES Lumbar spine: 1.182 g/cm2, T-score 1.5 Levels: L1 through L4 Change from prior: No change. Left femoral neck: 0.537 g/cm2, T-score -2.8 Femoral neck comparison data not recommended for monitoring change. Left total hip: 0.686 g/cm2, T-score -2.1 Change from prior: Loss of 14.2%. Right femoral neck: 0.608 g/cm2, T-score -2.2 Femoral neck comparison data not recommended for monitoring change. Right total hip: 0.711 g/cm2, T-score -1.9 Change from prior: Loss of 10.2%. . The World Health Organization has defined the following categories based on bone density: Normal bone density: T-score equal to or greater than -1.0 Osteopenia: T-score between -1.0 and -2.5 Osteoporosis: T-score equal to or less than -2.5 FRAX (or Comparable) Fracture Risk Assessment: 10 Year Probability of Fracture: Major Osteoporotic Fracture: 25% Hip Fracture: 5.6% (Note: FRAX is not to be reported in setting of normal range bone density, osteoporosis on DEXA, known history of osteoporosis, prior osteoporotic hip or vertebral fracture, or for any patient undergoing pharmacological treatment for bone loss.) The National Osteoporosis Foundation (NOF) recommends pharmacological treatment for patients with a FRAX 10-year risk of 3% or higher for a hip fracture, or 20% or higher for a major osteoporotic fracture, to prevent osteoporosis and reduce fracture risk. The patient does meet the pharmacological treatment recommendations for prevention of osteoporosis. BD/Dexa Bone Density Study IMPRESSION: OSTEOPOROSIS. Recommend follow-up as clinically warranted. Reading Location: [id number]
== END | disposition home or self-care (01) ==
LOC: OPBD 08:29
PROVIDERS: PCP Internal Medicine; Referring Provider Internal Medicine; Visit Provider Internal Medicine
DX: Z78.0 Asymptomatic menopausal state (principal)
CPT/HCPCS: 77080